=== PATIENT | male | born 1955 | race Caucasian/White ===

== ENCOUNTER 2022-04-07 21:17 | Inpatient (IN) ==
[2022-04-08] MEDS ORDERED: Iopamidol - 370 500 ML MLS IVP ONE (00:12)
[2022-04-08] MEDS ORDERED: Vancomycin (wt based) 1,000 MG VIAL IV STA (00:13)
[2022-04-08 00:53] LABS: Basophils # 0.1 K/mcL (0.0-0.2); Basophils % 0.4 %; Eosinophils # 0.3 K/mcL (0.0-0.6); Eosinophils % 2.3 %; Hematocrit 40.6 % (37.5-50.1); Hemoglobin 13.7 g/dL (12.9-16.9); Immature Granulocytes % 0.3 % (0-4); Lymphocytes # 2.2 K/mcL (0.6-4.6); Lymphocytes % 16.3 %; Mean Corpuscular HGB Conc 33.7 g/dL (31.6-35.5); Mean Corpuscular Hemoglobin 29.4 pg (28.0-33.3); Mean Corpuscular Volume 87.1 fL (83.0-100.0); Mean Platelet Volume 11.3 fL (9.4-12.4); Monocytes % 7.2 %; Neutrophils # 9.7 K/mcL (1.6-8.9); Platelet Count 235 K/mcL (140-400); Red Blood Count 4.66 M/mcL (4.19-5.50); Red Cell Distribution Width 12.9 % (11.5-14.5); Segmented Neutrophils % 73.5 %; White Blood Count 13.2 K/mcL (4.3-11.1)
[2022-04-08 01:09] LABS: Calcium 9.1 mg/dL (8.6-10.3); Potassium 3.6 mEq/L (3.5-5.1)
[2022-04-08] MEDS ORDERED: Ondansetron 4 MG/2 ML VIAL IVP PRN (05:56)
[2022-04-08] MEDS ORDERED: Naloxone 0.4 MG/ML INJ IVP PRN (05:56)
[2022-04-08] MEDS ORDERED: Acetaminophen 325 MG TABLET PO PRN (05:56)
[2022-04-08] MEDS: *HR* Enoxaparin 40 MG/0.4 ML SYRINGE SQ SCH (08:21)
[2022-04-08] MEDS: Piperacillin/Tazobactam 3.375 GM in 0.9 % Sodium Chloride Mini Bag 100 ML IVPB SCH ×2 (08:21→17:05)
[2022-04-08] MEDS: Nicotine 21 MG PATCH.TD24 TD SCH (13:00)
[2022-04-08] MEDS: *HR* HYDROmorphone 2 MG TABLET PO PRN ×2 (13:12→20:27)
[2022-04-09] MEDS: Piperacillin/Tazobactam 3.375 GM in 0.9 % Sodium Chloride Mini Bag 100 ML IVPB SCH ×3 (00:05→15:27)
[2022-04-09] MEDS ORDERED: Melatonin 3 MG TABLET PO PRN (00:16)
[2022-04-09 03:11] LABS: Basophils # 0.1 K/mcL (0.0-0.2); Basophils % 0.6 %; Eosinophils # 0.3 K/mcL (0.0-0.6); Eosinophils % 3.1 %; Hematocrit 40.7 % (37.5-50.1); Hemoglobin 13.4 g/dL (12.9-16.9); Immature Granulocytes % 0.3 % (0-4); Lymphocytes # 1.6 K/mcL (0.6-4.6); Lymphocytes % 16.3 %; Mean Corpuscular HGB Conc 32.9 g/dL (31.6-35.5); Mean Corpuscular Hemoglobin 29.2 pg (28.0-33.3); Mean Corpuscular Volume 88.7 fL (83.0-100.0); Monocytes # 0.7 K/mcL (0.0-1.3); Monocytes % 7.5 %; Neutrophils # 7.1 K/mcL (1.6-8.9); Platelet Count 218 K/mcL (140-400); Red Blood Count 4.59 M/mcL (4.19-5.50); Segmented Neutrophils % 72.2 %; White Blood Count 9.8 K/mcL (4.3-11.1)
[2022-04-09 03:19] LABS: INR 1.1; Prothrombin Time 12.8 Seconds (9.4-12.1)
[2022-04-09 03:30] LABS: BUN/Creatinine Ratio 16 (6-26); Blood Urea Nitrogen 13 mg/dL (8-23); Calcium 8.7 mg/dL (8.6-10.3); Carbon Dioxide 25 mEq/L (23-29); Chloride 106 mEq/L (98-107); Glucose 94 mg/dL (70-105); Magnesium 1.6 mg/dL (1.6-2.6); Osmolality,Calculated 282 (280-300); Potassium 3.8 mEq/L (3.5-5.1); Sodium 136 mEq/L (136-145)
[2022-04-09] MEDS: *HR* Enoxaparin 40 MG/0.4 ML SYRINGE SQ SCH (05:44)
[2022-04-09] MEDS: Nicotine 21 MG PATCH.TD24 TD SCH (07:58)
[2022-04-09] MEDS: lisinopriL 10 MG TABLET PO SCH (07:58)
[2022-04-09] MEDS: *HR* HYDROmorphone 2 MG TABLET PO PRN ×3 (08:03→18:56)
[2022-04-09] MEDS: Vancomycin 1,250 MG/262.5 ML IV.SOLN IVPB SCH (13:54)
[2022-04-10] MEDS: Vancomycin 1,250 MG/262.5 ML IV.SOLN IVPB SCH ×2 (00:18→15:45)
[2022-04-10] MEDS: *HR* HYDROmorphone 2 MG TABLET PO PRN ×3 (00:18→15:38)
[2022-04-10] MEDS: Piperacillin/Tazobactam 3.375 GM in 0.9 % Sodium Chloride Mini Bag 100 ML IVPB SCH ×4 (00:19→23:39)
[2022-04-10] MEDS: *HR* Enoxaparin 40 MG/0.4 ML SYRINGE SQ SCH (06:56)
[2022-04-10] MEDS: Nicotine 21 MG PATCH.TD24 TD SCH (09:17)
[2022-04-10] MEDS: lisinopriL 10 MG TABLET PO SCH (09:18)
[2022-04-10] MEDS ORDERED: *HR* Midazolam HCl 2 MG/2 ML VIAL ONE (13:31)
[2022-04-10] MEDS ORDERED: *HR* Propofol 200 MG/20 ML VIAL IVP ONE ×2 (13:31→14:13)
[2022-04-10] MEDS ORDERED: *HR* FentaNYL (PF) 100 MCG/2 ML VIAL ONE (13:31)
[2022-04-10] MEDS ORDERED: Lidocaine -MPF 2% 2 ML VIAL ONE (13:32)
[2022-04-10] MEDS ORDERED: Ondansetron 4 MG/2 ML VIAL IVP PRN (13:42)
[2022-04-10] MEDS ORDERED: *HR* HYDROmorphone PF 0.5 MG/0.5 ML SYRINGE IVP PRN (13:42)
[2022-04-10] MEDS ORDERED: *HR* FentaNYL (PF) 100 MCG/2 ML VIAL IVP PRN (13:42)
[2022-04-10] MEDS ORDERED: *HR* OxyCODONE Immed Rel 5 MG TABLET PO PRN ×2 (13:42→17:57)
[2022-04-10] MEDS ORDERED: Ketamine HCL *QUVA* 50mg (1mL) SYRINGE ONE (14:14)
[2022-04-10] MEDS ORDERED: Lidocaine -MPF 1% 5 ML AMPUL ONE (14:50)
[2022-04-10] MEDS ORDERED: Ketorolac 30 MG/ML VIAL IVP PRN (17:58)
[2022-04-10] MEDS: Budesonide/Formoterol 80/4.5 1 PUFF INH IH SCH (22:48)
[2022-04-11 03:19] VITALS: TEMP 97.9
[2022-04-11] MEDS ORDERED: Vancomycin 1,250 MG/262.5 ML IV.SOLN IVPB SCH (04:00)
[2022-04-11 04:38] LABS: Basophils # 0.1 K/mcL (0.0-0.2); Basophils % 0.8 %; Eosinophils # 0.5 K/mcL (0.0-0.6); Eosinophils % 5.6 %; Hematocrit 43.3 % (37.5-50.1); Hemoglobin 14.2 g/dL (12.9-16.9); Immature Granulocytes % 0.1 % (0-4); Lymphocytes # 1.8 K/mcL (0.6-4.6); Lymphocytes % 20.1 %; Mean Corpuscular HGB Conc 32.8 g/dL (31.6-35.5); Mean Corpuscular Hemoglobin 28.4 pg (28.0-33.3); Mean Corpuscular Volume 86.6 fL (83.0-100.0); Mean Platelet Volume 11.3 fL (9.4-12.4); Monocytes # 0.7 K/mcL (0.0-1.3); Monocytes % 7.5 %; Neutrophils # 5.9 K/mcL (1.6-8.9); Platelet Count 269 K/mcL (140-400); Red Cell Distribution Width 13.1 % (11.5-14.5); Segmented Neutrophils % 65.9 %; White Blood Count 8.9 K/mcL (4.3-11.1)
[2022-04-11 04:59] LABS: BUN/Creatinine Ratio 13 (6-26); Blood Urea Nitrogen 12 mg/dL (8-23); Calcium 9.3 mg/dL (8.6-10.3); Carbon Dioxide 22 mEq/L (23-29); Chloride 106 mEq/L (98-107); Glucose 93 mg/dL (70-105); Osmolality,Calculated 283 (280-300); Potassium 3.8 mEq/L (3.5-5.1); Sodium 137 mEq/L (136-145)
[2022-04-11] MEDS: *HR* Enoxaparin 40 MG/0.4 ML SYRINGE SQ SCH (06:51)
[2022-04-11 07:19] VITALS: BP 150/83; PULSE 83; O2SAT 96
[2022-04-11] MEDS: Budesonide/Formoterol 80/4.5 1 PUFF INH IH SCH (07:55)
[2022-04-11] MEDS: lisinopriL 10 MG TABLET PO SCH (09:19)
[2022-04-11] MEDS: Nicotine 21 MG PATCH.TD24 TD SCH (09:20)
[2022-04-11] MEDS: Piperacillin/Tazobactam 3.375 GM in 0.9 % Sodium Chloride Mini Bag 100 ML IVPB SCH (09:20)
[2022-04-11] MEDS ORDERED: hydrOXYzine pamoate 25 MG CAPSULE PO PRN (09:53)
== END 2022-04-11 13:19 | disposition home or self-care (01) | DRG 581 ==
LOC: 3ANU 21:17 → EMEROOARM 21:17 → SUATTDRO 04-08 06:15 → 3ANU 04-08 06:17 → 4WAOSI 04-08 06:19 → SUATTDRO 04-09 15:51
PROVIDERS: ADMIT Pharmacist; ATTEND Hospitalist